=== PATIENT | male | born 2000 | race Caucasian/White ===

== ENCOUNTER 2020-06-07 22:53 | Emergency (ER) | payer OTHER ==
[2020-06-07 22:59] VITALS: BP 124/82; PULSE 89; TEMP 98.1; BMI 40.9
[2020-06-07] MEDS ORDERED: MAG HYDROX/AL HYDROX/SIMETH 30 ML UNIT-DOSE CUP PO ONE (23:48)
[2020-06-07] MEDS ORDERED: ASPIRIN 81 MG CHEWABLE TABLETS PO ONE (23:48)
[2020-06-07] MEDS ORDERED: MAG HYDROX/AL HYDROX/SIMETH 30 ML UNIT-DOSE CUP ONE (23:54)
[2020-06-07] MEDS ORDERED: ASPIRIN 81 MG CHEWABLE TABLETS ONE (23:54)
[2020-06-08 00:12] LABS: BASO % 0.7 % (0-2.0); EOS % 1.1 % (0-4.5); HEMATOCRIT 40.8 % (35.4-49); HEMOGLOBIN 13.9 GM/dL (11.7-16.9); LYMPH % 31.3 % (8-40); MCH 29.3 pg (25.7-33.7); MEAN CELL VOLUME 86.1 fl (80-96); MEAN PLT VOLUME 8.7 fl (7.5-11.1); MONO % 7.4 % (3.8-10.2); NEUT % 59.5 % (42.8-82.8); PLATELET COUNT 249 K/MM3 (134-434); RBC 4.74 M/mm3 (4.00-5.60); RDW 12.3 % (11.9-15.9); WHITE BLOOD COUNT 10.8 K/mm3 (4.0-10.0)
[2020-06-08 00:28] LABS: CHLORIDE 108 mmol/L (98-107); SODIUM 141 mmol/L (136-145)
[2020-06-08 00:30] LABS: CALCIUM 8.8 mg/dL (8.5-10.1)
[2020-06-08 00:31] LABS: ALBUMIN 4.1 g/dl (3.4-5.0); ANION GAP 6 MMOL/L (8-16); BLOOD UREA NITROGEN 26.2 mg/dL (7-18); CO2 27 mmol/L (21-32); GLUCOSE,RANDOM 88 mg/dL (74-106); MAGNESIUM 1.9 mg/dL (1.8-2.4)
[2020-06-08 00:34] LABS: CREATININE 1.1 mg/dL (0.55-1.3); SGOT/AST 23 U/L (15-37); SGPT/ALT 40 U/L (13-61)
[2020-06-08 00:35] LABS: BILIRUBIN,TOTAL 0.4 mg/dL (0.2-1); TOT PROT 7.6 g/dl (6.4-8.2)
[2020-06-08 00:37] LABS: ALK PHOS 89 U/L (45-117)
[2020-06-08 00:43] LABS: EPI CELLS 16 /uL (0-25.1); HYALINE CASTS 2 /uL (0-3.1); URINE APPEARANCE CLEAR; URINE BACTERIA 82 /uL (0-1359); URINE BILIRUBIN NEGATIVE (NEGATIVE); URINE COLOR YELLOW; URINE GLUCOSE (UA) NEGATIVE (NEGATIVE); URINE KETONE NEGATIVE (NEGATIVE); URINE LEUK ESTERASE 1+ (NEGATIVE); URINE NITRITE NEGATIVE (NEGATIVE); URINE PROTEIN NEGATIVE (NEGATIVE); URINE RBC 8 /uL (0-23.9); URINE UROBILINOGEN 0.2 mg/dL (0.2-1.0); URINE WBC 273 /uL (0-25.8)
[2020-06-08 00:47] LABS: URINE BARBITURATES NEGATIVE ng/ml (CUTOFF=200)
[2020-06-08 00:48] LABS: PHENCYCLIDINE,URINE NEGATIVE ng/ml (CUTOFF=25); URINE AMPHETAMINES NEGATIVE ng/ml (CUTOFF=500)
[2020-06-08 01:07] LABS: COCAINE, UR NEGATIVE ng/ml (CUTOFF=300); METHADONE, UR NEGATIVE ng/ml (CUTOFF=300); OPIATES, URI NEGATIVE ng/ml (CUTOFF=300); URINE BENZODIAZEPINES NEGATIVE ng/ml (CUTOFF=200)
== END 2020-06-08 01:52 | disposition home or self-care (01) ==
LOC: JER 22:53
DX: R07.89 Other chest pain (principal)
CPT/HCPCS: 36415; 71046-TC-FY; 80053; 80307; 81003; 82550; 82553; 83735; 84484; 85025; 93005; 93010; 99285-25

== ENCOUNTER 2021-10-15 18:34 | Emergency (ER) | payer OTHER ==
[2021-10-15 18:44] VITALS: BP 123/82; PULSE 104; TEMP 98.1; BMI 41.9
[2021-10-15] MEDS ORDERED: predniSONE 20 MG TABLET (UD) PO ONE (20:19)
[2021-10-15] MEDS ORDERED: predniSONE 20 MG TABLET (UD) ONE (20:24)
== END 2021-10-15 20:52 | disposition home or self-care (01) ==
LOC: JER 18:34 → JERFT 18:34
DX: L30.9 Dermatitis, unspecified (principal)
CPT/HCPCS: 99283-25

== ENCOUNTER 2022-05-11 11:01 | Day surgery (SDC) | payer OTHER ==
[2022-05-08 13:29] VITALS: BMI 41.1
[2022-05-11] MEDS ORDERED: PROPOFOL 40 ML ONE (11:59)
[2022-05-11] MEDS ORDERED: MIDAZOLAM HCL 2 MG/2 ML SINGLE DOSE VIAL ONE (12:00)
[2022-05-11] MEDS ORDERED: SUCCINYLCHOLINE CHLORIDE 200 MG/10 ML SYRINGE ONE (12:38)
[2022-05-11] MEDS ORDERED: BUPIVACAINE HCL/PF 2.5 MG/ML - 30 ML VIAL IJ ONE (13:13)
[2022-05-11] MEDS ORDERED: FENTANYL CITRATE/PF 50 MCG/ML VIAL ONE ×2 (13:36→13:46)
[2022-05-11] MEDS ORDERED: ONDANSETRON 4 MG/2 ML VIAL IVPUSH PRN (13:37)
[2022-05-11] MEDS ORDERED: PROMETHAZINE HCL 25 MG/1 ML VIAL IVPUSH PRN (13:37)
[2022-05-11] MEDS ORDERED: oxyCODONE HCL 5 MG TABLET PO PRN (13:37)
[2022-05-11] MEDS ORDERED: LACTATED RINGERS SOLUTION 1,000 ML IV SCH (13:45)
[2022-05-11] MEDS ORDERED: oxyCODONE HCL 5 MG TABLET ONE (14:44)
[2022-05-11 14:50] VITALS: RESP 18; TEMP 97.9
[2022-05-11 15:21] VITALS: BP 113/61; PULSE 76
== END 2022-05-11 15:45 | disposition home or self-care (01) ==
LOC: FASU 11:01
PROVIDERS: ATTEND Orthopaedic Surgery
PROC: 0SBC4ZZ Excision of Right Knee Joint, Percutaneous Endoscopic Approach (ICD-10-PCS; 2022-05-11)
PROC: 0SBC4ZZ Excision of Right Knee Joint, Percutaneous Endoscopic Approach (ICD-10-PCS; principal; 2022-05-11 12:30)
DX: S83.241A Other tear of medial meniscus, current injury, right knee, initial encounter (principal); S83.281A Other tear of lateral meniscus, current injury, right knee, initial encounter; S83.8X1A Sprain of other specified parts of right knee, initial encounter; M65.861 Other synovitis and tenosynovitis, right lower leg; X58.XXXA Exposure to other specified factors, initial encounter; Y93.9 Activity, unspecified; Y92.9 Unspecified place or not applicable
CPT/HCPCS: 94760